=== PATIENT | male | born 1970 | race Caucasian/White ===

== ENCOUNTER 2023-09-17 10:18 | Outpatient (OUT) | payer OTHER, SELFPAY ==
[2023-09-17 10:27] LABS: Basophils Absolute Auto 0.1 10^3/uL (0.0-0.1); Eosinophils Absolute Auto 0.6 10^3/uL (0.0-0.7); Eosinophils Percent Auto 6.5 % (0.9-7.0); Hematocrit 41.3 % (42.0-54.0); Hemoglobin 14.1 g/dL (14.0-18.0); Immature Granulocytes Abs Auto 0.03 10^3/uL (0.00-0.03); Immature Granulocytes Pct Auto 0.3 % (0.0-0.5); Lymphocytes Absolute Auto 3.8 10^3/uL (1.2-3.8); Lymphocytes Percent Auto 40.7 % (20.5-60.0); Mean Corpuscular HGB Conc 34.1 g/dL (29.9-35.2); Mean Corpuscular Volume 90.8 fL (80.0-94.0); Monocytes Absolute Auto 0.9 10^3/uL (0.3-0.8); Monocytes Percent Auto 9.8 % (1.7-12.0); Neutrophils Absolute Auto 3.9 10^3/uL (1.4-6.5); Neutrophils Percent Auto 41.7 % (43.0-75.0); Platelet Count 246 10^3/uL (150-450); Red Blood Count 4.55 10^6/uL (4.70-6.10); Red Cell Distribution Width 12.6 % (11.0-15.0); White Blood Count 9.2 10^3/uL (4.0-11.0)
[2023-09-17 10:40] LABS: Creatinine Urine Random 117.72 mg/dL (20.00-300.00); Microalbumin Urine Random <1.3 mg/dL (<=30.0)
[2023-09-17 10:54] LABS: Alanine Aminotransferase 24 U/L (16-63); Albumin Globulin Ratio 1.1; Albumin Level 3.7 g/dL (3.4-5.0); Alkaline Phosphatase 93 U/L (46-116); Anion Gap 9.1; Aspartate Amino Transferase 11 U/L (15-37); BUN Creatinine Ratio 10.7; Bilirubin Total 0.7 mg/dL (0.2-1.0); Calcium 9.1 mg/dL (8.5-10.1); Carbon Dioxide 29.9 mmol/L (21.0-32.0); Chloride 103 mmol/L (98-107); Chol HDL Ratio 3.4; Cholesterol 186 mg/dL (<=200); Estimated GFR (African America >60 (>=60); Estimated GFR (Non-African Ame >60 (>=60); Globulin 3.4 g/dL; Glucose 79 mg/dL (74-106); HDL Cholesterol 55 mg/dL (40-60); LDL Cholesterol Calculated 122.4 mg/dL; Sodium 138 mmol/L (136-145); Total Protein 7.1 g/dL (6.4-8.2); Triglycerides 43 mg/dL (<=150); VLDL CHOLESTEROL 8.6 mg/dL
[2023-09-17 11:18] LABS: Prostate Specific Antigen Scrn 1.01 ng/mL (<=4.00)
== END 2023-09-17 10:19 | disposition home or self-care (01) ==
LOC: LAB 10:18
PROVIDERS: PCP Nurse Practitioner Family; Visit Provider Nurse Practitioner Family
DX: Z12.5 Encounter for screening for malignant neoplasm of prostate (principal); E10.9 Type 1 diabetes mellitus without complications
CPT/HCPCS: 36415; 80053; 80061; 82043; 82570; 85025; G0103

== ENCOUNTER 2024-04-12 08:58 | Outpatient (OUT) | payer OTHER, SELFPAY ==
--- OUTSIDE RECORDS SUMMARY | 2024-04-12 09:15 | XMS_ITS | CCD ---
Author Organization [facility] Care Team Providers Care Tower Foreman Name Role Phone YUE ZELAYA Admitting Unavailable YUE ZELAYA Attending Unavailable HOUSE, DR CHRISTINA Admitting Unavailable HOUSE, DR CHRISTINA Attending Unavailable HOUSE, DR CHRISTINA Primary Care Unavailable HOUSE, DR CHRISTINA Consulting Unavailable HOUSE, DR CHRISTINA Admitting Unavailable HOUSE, DR CHRISTINA Attending Unavailable HOUSE, DR CHRISTINA Primary Care Unavailable RENETTA THURSTON Consulting Unavailable Akosua Cope Unavailable Medications Current Medications Medication Drug Class(es) Dates Sig (Normalized) Sig (Original) amoxicillin 875 mg / clavulanate 125 mg oral tablet (1 source) Penicillin-class Antibacterial Start: 10-26-2023 take 1 tablet by mouth every twelve hours Amoxicillin-Pot Clavulanate 875-125 MG 1 tablet Orally every 12 hrs for 10 days Oct, Active 3 ml insulin degludec 100 unt/ml pen injector (5 sources) Insulin Analog Tresiba FlexTouc h 100 UNIT/ML Subcutaneous for 90 Days Active 3 ml insulin lispro 100 unt/ml pen injector (5 sources) Insulin Analog HumaLOG KwikPen 100 UNIT/ML Subcutaneous for 90 Days Active {20 (nirmatrelvir 150 MG Oral Tablet) / 10 (ritonavir 100 MG Oral Tablet) } Pack [Paxlovid 5-Day] (1 source) Start: 08-17-2023 Paxlovid (300/100) 20 x 150 MG & 10 x 100MG as directed Orally bid for 5 days Jul, Active Problems Active Problems Problem Classification Problem Date Documented Da te Episodic/Chronic Diabetes mellitus with complications (4 sources) Type 1 diabetes mellitus with hyperglycemia; Translations: [TYPE 1 DM W/HYPERGLYCEMIA] Onset: 08-07-2022 Chronic Diabetes mellitus without complication (5 sources) Type 1 diabetes mellitus without complication; Translations: [Type 1 diabetes mellitus without complications] Chronic Disorders of teeth and jaw (1 source) Periapical abscess without sinus Episodic Nutritional deficiencies (1 source) Vitamin D deficiency, unspecified; Translations: [VITAMIN D DEFICIENCY UNSPECIFIED] Onset: 08-11-2022 Chronic Other aftercare (1 source) intermediate (current) use of insulin; Translations: [SNF CURRENT USE OF INSULIN] Onset: 08-11-2022 Episodic Other nervous system disorders (4 sources) Chronic pain; Translations: [Other chronic pain] Chronic Other nervous system disorders (1 source) Other chronic pain Chronic Other non-traumatic joint disorders (1 source) Pain in left shoulder Episodic Other screening for suspected conditions (not mental disorders or infectious disease) (2 sources) Encounter for screening for malignant neoplasm of colon; Translations: [Encounter for screening for malignant neoplasm of prostate] Episodic Residual codes; unclassified (1 source) Body mass index (BMI) 20.0-20.9, adult Episodic Unclassified (2 sources) CONTACT W/AND (SUSP) EXPOS COVID-19; Translations: [CONTACT W/AND (SUSP) EXPOS COVID-19] Onset: 09-03-2021 Past or Other Problems Problem Classification Problem Date Documented Da te Episodic/Chronic Unclassified (1 source) CONTACT W/AND (SUSP) EXPOS COVID-19; Translations: [CONTACT W/AND (SUSP) EXPOS COVID-19] Onset: 08-28-2021 Viral infection (2 sources) COVID-19; Translations: [COVID-19] Onset: 09-03-2021 Results Test Name Value Interpretation Reference Range Facil ity C-PEPTIDE, SERUMon 2 C-Peptide, Serum <0.1 Critically low 1.1-4.4 [facility] Comment on above: Result Comment: C-Pe ptide reference interval is for fasting patients. Performed By: #### C PEPT #### [facility] [address] [place] [address] Dr. Joselito Leong LIPID PROFILEon 08-07-2022 CHOL-HDL RATIO NORM SEE BELOW Normal [facility] Comment on above: Result Comment: 3.3 - 4.4 LOW RISK 4.4 - 7.1 AVERAGE RISK 7.1 - 11.0 MODERATE RISK >11.0 HIGH RISK Performed By: #### R ENAL, LIPID #### [facility] [address] [address] [address] Joselito Leong Cholesterol [Mass/Vol] 202 mg/dL Critically high <=200 [facility] Comment on above: Performed By: #### R ENAL, LIPID #### [facility] [address] [address] [address] Joselito Leong Cholesterol in HDL [Mass/Vol] 55 mg/dL Normal 40-60 [facility] Comment on above: Performed By: #### R ENAL, LIPID #### [facility] [address] [address] [address] Joselito Leong Cholesterol in LDL [Mass/Vol] 134.8 mg/dL Normal [facility] Comment on above: Performed By: #### R ENAL, LIPID #### [facility] [address] [address] [address] Joselito Leong Cholesterol.total /Cholesterol in HDL [Mass ratio] 3.7 {ratio} Normal [facility] Comment on above: Performed By: #### R ENAL, LIPID #### [facility] [address] [address] [address] Joselito Leong HDL NORMAL > or = 60 mg/dl - LO W CARDIOVASCULAR RISK <40 mg/dl - HIGH CARDIOVASCULAR RISK Normal [facility] Comment on above: Performed By: #### R ENAL, LIPID #### [facility] [address] [address] [address] Joselito Leong LDL CALC NORMAL SEE BELOW Normal [facility] Comment on above: Result Comment: <100 mg/dl OPTIMAL 100 - 129 mg/dl NEAR OR ABOVE OPTIMAL 130 - 159 mg/dl BORDERLINE HIGH 160 - 189 mg/dl HIGH >190 mg/dl VERY HIGH Performed By: #### R ENAL, LIPID #### [facility] [address] [address] [address] Joselito Leong Triglyceride [Mass/Vol] 61 mg/dL Normal <=150 [facility] Comment on above: Performed By: #### R ENAL, LIPID #### [facility] [address] [address] [address] Joselito Leong VLDL CALC 12.2 mg/dL Normal [facility] Comment on above: Performed By: #### R ENAL, LIPID #### [facility] [address] [address] [address] Joselito Leong MICROALB CREAT RATIO RANDOMo n 08-07-2022 mALB <1.3 Normal <=30.0 [facility] Comment on above: Performed By: #### M CRR #### [facility] [address] [address] [address] Joselito Leong MALB CR RATIO 11.7 mg/g Normal 0.0-29.9 [facility] Comment on above: Performed By: #### M CRR #### [facility] [address] [place] [address] Dr. Joselito Leong MALB CR RATIO RANGE SEE BELOW Normal [facility] Comment on above: Result Comment: NO M ICROALBUMINURIA 0-29 MG/G CLINICAL MICROALBUMINURIA 30-300 MG/G MACROALBUMINURIA >300 MG/G Performed By: #### M CRR #### [facility] [address] [place] [address] Dr. Joselito Leong URINE CREAT 111.45 mg/dL Normal 20.00-300.00 [facility] Comment on above: Performed By: #### M CRR #### [facility] [address] [place] [address] Dr. Joselito Leong RENAL FUNCTION PANELon 08-07 Albumin [Mass/Vol] 4.2 g/dL Normal 3.4-5.0 [facility] Comment on above: Performed By: #### R ENAL, LIPID #### [facility] [address] [address] [address] Joselito Leong Calcium [Mass/Vol] 8.9 mg/dL Normal 8.5-10.1 [facility] Comment on above: Performed By: #### R ENAL, LIPID #### [facility] [address] [address] [address] Joselito Leong Chloride [Moles/Vol] 97 mmol/L Critically low 98-107 [facility] Comment on above: Performed By: #### R ENAL, LIPID #### [facility] [address] [address] [address] Joselito Leong CO2 [Moles/Vol] 29.5 mmol/L Normal 21.0-32.0 [facility] Comment on above: Performed By: #### R ENAL, LIPID #### [facility] [address] [address] [address] Joselito Leong Creatinine [Mass/Vol] 0.76 mg/dL Normal 0.70-1.30 [facility] Comment on above: Performed By: #### R ENAL, LIPID #### [facility] [address] [address] [address] Joselito Leong EGFR-AF PANAMANIAN >60 Normal >=60 [facility] Comment on above: Performed By: #### R ENAL, LIPID #### [facility] [address] [address] [address] Joselito Leong EGFR-NON AF PANAMANIAN >60 Normal >=60 [facility] Comment on above: Performed By: #### R ENAL, LIPID #### [facility] [address] [address] [address] Joselito Leong Glucose [Mass/Vol] 172 mg/dL Critically high 74-106 [facility] Comment on above: Performed By: #### R ENAL, LIPID #### [facility] [address] [address] [address] Joselito Leong Phosphate [Mass/Vol] 3.6 mg/dL Normal 2.6-4.7 [facility] Comment on above: Performed By: #### R ENAL, LIPID #### [facility] [address] [address] [address] Joselito Leong Potassium [Moles/Vol] 4.6 mmol/L Normal 3.5-5.1 [facility] Comment on above: Performed By: #### R ENAL, LIPID #### [facility] [address] [address] [address] Joselito Leong Sodium [Moles/Vol] 130 mmol/L Critically low 136-145 [facility] Comment on above: Performed By: #### R ENAL, LIPID #### [facility] [address] [address] [address] Joselito Leong Urea nitrogen [Mass/Vol] 9.0 mg/dL Normal 7.0-18.0 [facility] Comment on above: Performed By: #### R ENAL, LIPID #### [facility] [address] [address] [address] Joselito Leong VITAMIN D 25 OHon 08-07-2022 VIT D 25-OH 39.0 ng/mL Normal [facility] Comment on above: Performed By: #### V ITAD #### [facility] [address] [address] [address] Joselito Leong VIT D RANGES SEE BELOW Normal [facility] Comment on above: Result Comment: <20 ng/mL Vit D deficient 20 - <30 ng/mL Vit D insufficient 30 - 100 ng/mL Vit D sufficient >100 ng/mL Potential Toxicity Performed By: #### V ITAD #### [facility] [address] [address] [address] Joselito Leong Covid-19 PCR (CVDTB)on 08-19 SARS-CoV-2 (COVID-19) RNA ANN+probe Ql (Unsp spec) Detected Critically abnormal NOT DETECTED [facility] Comment on above: Result Comment: This test is not yet approved or cleared by the [place] FDA. When there are no FDA-approved or cleared tests available, and other criteria are met, FDA can make tests available under an emergency access mechanism called an Emergency Use Authorization (EUA). The EUA for this test is supported by the Dermatology Teacher of Health and Human Service's (HHS's) declaration that circumstances exist to justify the emergency use of in vitro diagnostics for the detection and/or diagnosis of the virus that causes COVID-19. This EUA will remain in effect (meaning this test can be used) for the duration of the COVID-19 declaration justifying emergency of IVDs, unless it is terminated or revoked by FDA (after which the test may no longer be used). Performed By: #### C VDTBH #### [facility] [address] [address] [address] Joselito Leong A1C with Est Shawanda Johnson 10-17 Glucose mass conc 171 mg/dL Normal [facility] Comment on above: Result Comment: Jory keller Average Glucose is a calculated value from HgbA1C and is merchandiser retail representative of the average blood glucose level in the last 2-3 month period. Performed By: #### C BCDIF, GBCHEM, GBTSH, MG, UA, RPR, A1CN #### [facility] [address] [place], [place] [id number] Hemoglobin A1c/Hemoglobin.to mj mass fraction (Bld) 7.6 % High 4.7-6.4 [facility] Comment on above: Result Comment: Inte rpretation: Standardized A1c Good control or normal: 4-6% (60-120 mg/dL avg) Moderate control: 6.1-8.0% (120-180 mg/dL avg) Poor control: >8.0% (180 mg/dL avg) With 4% as a baseline, each 1% increase = 30 mg/dL increase in average glucose. Taken from DCCT (Diabetes Control Complications Trial) Performed By: #### C BCDIF, GBCHEM, GBTSH, MG, UA, RPR, A1CN #### [facility] [address] [place], [place] [id number] CBCDIFon 10-17-2018 Abs Baso 0.03 k/uL Normal 0-0.2 [facility] Comment on above: Performed By: #### C BCDIF, GBCHEM, GBTSH, MG, UA, RPR, A1CN #### [facility] [address] [place], [place] [id number] Abs [place] 0.62 k/uL Normal 0-0.8 [facility] Comment on above: Performed By: #### C BCDIF, GBCHEM, GBTSH, MG, UA, RPR, A1CN #### [facility] [address] [place], [place] [id number] Abs Neut 3.19 k/uL Normal 1.8-7.7 [facility] Comment on above: Performed By: #### C BCDIF, GBCHEM, GBTSH, MG, UA, RPR, A1CN #### [facility] [address] [place] [address] Basophils/100 WBC (Bld) 0.4 % Normal 0-1 [facility] Comment on above: Performed By: #### C BCDIF, GBCHEM, GBTSH, MG, UA, RPR, A1CN #### [facility] [address] [place] [address] Eosinophils #/vol (Bld) 0.24 10*3/uL Normal 0-0.4 [facility] Comment on above: Performed By: #### C BCDIF, GBCHEM, GBTSH, MG, UA, RPR, A1CN #### [facility] [address] [place] [address] Eosinophils/100 WBC (Bld) 3.2 % Normal 0-4 [facility] Comment on above: Performed By: #### C BCDIF, GBCHEM, GBTSH, MG, UA, RPR, A1CN #### [facility] [address] [place] [address] Erythrocyte distribution width Ratio (RBC) 13.0 % Normal 11.5-14.5 [facility] Comment on above: Performed By: #### C BCDIF, GBCHEM, GBTSH, MG, UA, RPR, A1CN #### [facility] [address] [place] [address] Hematocrit Volume Fraction (Bld) 42.4 % Normal 41.0-53.0 [facility] Comment on above: Performed By: #### C BCDIF, GBCHEM, GBTSH, MG, UA, RPR, A1CN #### [facility] [address] [place] [address] Hemoglobin mass conc (Bld) 14.4 g/dL Normal 13.5-17.5 [facility] Comment on above: Performed By: #### C BCDIF, GBCHEM, GBTSH, MG, UA, RPR, A1CN #### [facility] [address] [place] [address] Immature Gran 0.30 % Normal 0-1.9 [facility] Comment on above: Performed By: #### C BCDIF, GBCHEM, GBTSH, MG, UA, RPR, A1CN #### [facility] [address] [place] [address] Lymphocytes #/vol (Bld) 3.37 10*3/uL Normal 1.0-4.0 [facility] Comment on above: Performed By: #### C BCDIF, GBCHEM, GBTSH, MG, UA, RPR, A1CN #### [facility] [address] [place] [address] Lymphocytes/100 WBC (Bld) 45.1 % High 22-44 [facility] Comment on above: Performed By: #### C BCDIF, GBCHEM, GBTSH, MG, UA, RPR, A1CN #### [facility] [address] [place] [address] MCH Entitic mass (RBC) 31.0 pG Normal 26-34 [facility] Comment on above: Performed By: #### C BCDIF, GBCHEM, GBTSH, MG, UA, RPR, A1CN #### [facility] [address] [place] [address] MCHC mass conc (RBC) 34.0 g/dL Normal 31-37 [facility] Comment on above: Performed By: #### C BCDIF, GBCHEM, GBTSH, MG, UA, RPR, A1CN #### [facility] [address] [place] [address] MCV Entitic volume (RBC) 91.2 fL Normal 80-100 [facility] Comment on above: Performed By: #### C BCDIF, GBCHEM, GBTSH, MG, UA, RPR, A1CN #### [facility] [address] [place] [address] Monocytes/100 WBC (Bld) 8.3 % Normal 4-12 [facility] Comment on above: Performed By: #### C BCDIF, GBCHEM, GBTSH, MG, UA, RPR, A1CN #### [facility] [address] [place] [address] Neutrophils/100 WBC (Bld) 42.7 % Normal 40-70 [facility] Comment on above: Performed By: #### C BCDIF, GBCHEM, GBTSH, MG, UA, RPR, A1CN #### [facility] [address] [place] [address] NRBCs 0 /100 WBC Normal 0-0.9 [facility] Comment on above: Performed By: #### C BCDIF, GBCHEM, GBTSH, MG, UA, RPR, A1CN #### [facility] [address] [place] [address] Platelets #/vol (Bld) 265 10*3/uL Normal 150-450 [facility] Comment on above: Performed By: #### C BCDIF, GBCHEM, GBTSH, MG, UA, RPR, A1CN #### [facility] [address] [place] [address] RBC #/vol (Bld) 4.65 10*6/uL Normal 4.50-5.90 [facility] Comment on above: Performed By: #### C BCDIF, GBCHEM, GBTSH, MG, UA, RPR, A1CN #### [facility] [address] [place] [address] WBC #/vol (Bld) 7.47 10*3/uL Normal 4.5-11.0 [facility] Comment on above: Performed By: #### C BCDIF, GBCHEM, GBTSH, MG, UA, RPR, A1CN #### [facility] [address] [place] [address] Valentino Sharp 2018 Albumin mass conc 4.3 g/dL Normal 3.5-5.0 [facility] Comment on above: Performed By: #### C BCDIF, GBCHEM, GBTSH, MG, UA, RPR, A1CN #### [facility] [address] [place] [address] Alkaline Phos 64 U/L Normal 38-125 [facility] Comment on above: Performed By: #### C BCDIF, GBCHEM, GBTSH, MG, UA, RPR, A1CN #### [facility] [address] [place] [address] ALT enzyme act/vol 25 U/L Normal 21-72 [facility] Comment on above: Performed By: #### C BCDIF, GBCHEM, GBTSH, MG, UA, RPR, A1CN #### [facility] [address] [place] [address] Amylase enzyme act/vol 83 U/L Normal 30-110 [facility] Comment on above: Performed By: #### C BCDIF, GBCHEM, GBTSH, MG, UA, RPR, A1CN #### [facility] [address] [place] [address] Anion gap molar conc 13 mmol/L Normal 0-15 [facility] Comment on above: Performed By: #### C BCDIF, GBCHEM, GBTSH, MG, UA, RPR, A1CN #### [facility] [address] [place] [address] AST enzyme act/vol 22 U/L Normal 17-59 [facility] Comment on above: Performed By: #### C BCDIF, GBCHEM, GBTSH, MG, UA, RPR, A1CN #### [facility] [address] [place] [address] Bilirubin Ql (U) 1.1 mg/dL Normal 0.2-1.3 [facility] Comment on above: Performed By: #### C BCDIF, GBCHEM, GBTSH, MG, UA, RPR, A1CN #### [facility] [address] [place] [address] Calcium mass conc 9.6 mg/dL Normal 8.4-10.2 [facility] Comment on above: Performed By: #### C BCDIF, GBCHEM, GBTSH, MG, UA, RPR, A1CN #### [facility] [address] [place] [address] Chloride molar conc 101 mmol/L Normal 98-107 [facility] Comment on above: Performed By: #### C BCDIF, GBCHEM, GBTSH, MG, UA, RPR, A1CN #### [facility] [address] [place] [address] Cholesterol mass conc 182 mg/dL Normal 100-199 [facility] Comment on above: Performed By: #### C BCDIF, GBCHEM, GBTSH, MG, UA, RPR, A1CN #### [facility] [address] [place] [address] CO2 molar conc 26 mmol/L Normal 22-30 [facility] Comment on above: Performed By: #### C BCDIF, GBCHEM, GBTSH, MG, UA, RPR, A1CN #### [facility] [address] [place] [address] Creatinine mass conc 0.76 mg/dL Normal 0.66-1.25 [facility] Comment on above: Performed By: #### C BCDIF, GBCHEM, GBTSH, MG, UA, RPR, A1CN #### [facility] [address] [place] [address] eGFR Amer >60 Normal >60 [facility] Comment on above: Result Comment: MDRD calculation used for eGFR results. Performed By: #### C BCDIF, GBCHEM, GBTSH, MG, UA, RPR, A1CN #### [facility] [address] [place] [address] eGFR non Am >60 Normal >60 [facility] Comment on above: Performed By: #### C BCDIF, GBCHEM, GBTSH, MG, UA, RPR, A1CN #### [facility] [address] [place] [address] Gamma glutamyl transferase enzyme act/vol 35 U/L Normal 15-73 [facility] Comment on above: Performed By: #### C BCDIF, GBCHEM, GBTSH, MG, UA, RPR, A1CN #### [facility] [address] [place] [address] Glucose mass conc 183 mg/dL High 74-106 [facility] Comment on above: Performed By: #### C BCDIF, GBCHEM, GBTSH, MG, UA, RPR, A1CN #### [facility] [address] [place] [address] LDH 339 U/L Normal 318-618 [facility] Comment on above: Performed By: #### C BCDIF, GBCHEM, GBTSH, MG, UA, RPR, A1CN #### [facility] [address] [place] [address] Phosphate mass conc 4.4 mg/dL Normal 2.5-4.5 [facility] Comment on above: Performed By: #### C BCDIF, GBCHEM, GBTSH, MG, UA, RPR, A1CN #### [facility] [address] [place] [address] Potassium molar conc 4.6 mmol/L Normal 3.5-5.1 [facility] Comment on above: Performed By: #### C BCDIF, GBCHEM, GBTSH, MG, UA, RPR, A1CN #### [facility] [address] [place] [address] Protein mass conc 7.2 g/dL Normal 6.2-8.2 [facility] Comment on above: Performed By: #### C BCDIF, GBCHEM, GBTSH, MG, UA, RPR, A1CN #### [facility] [address] [place] [address] Sodium molar conc 135 mmol/L Low 137-145 [facility] Comment on above: Performed By: #### C BCDIF, GBCHEM, GBTSH, MG, UA, RPR, A1CN #### [facility] [address] [place] [address] Triglyceride mass conc 92 mg/dL Normal 35-150 [facility] Comment on above: Performed By: #### C BCDIF, GBCHEM, GBTSH, MG, UA, RPR, A1CN #### [facility] [address] [place] [address] Urate mass conc 3.0 mg/dL Low 3.5-8.5 [facility] Comment on above: Performed By: #### C BCDIF, GBCHEM, GBTSH, MG, UA, RPR, A1CN #### [facility] [address] [place] [address] Urea nitrogen mass conc 10 mg/dL Normal 9-20 [facility] Comment on above: Performed By: #### C BCDIF, GBCHEM, GBTSH, MG, UA, RPR, A1CN #### [facility] [address] [place] [address] [facility] Thyrotropin Qn 3.120 uU/mL Normal 0.465-4.680 [facility] Comment on above: Performed By: #### C BCDIF, GBCHEM, GBTSH, MG, UA, RPR, A1CN #### [facility] [address] [place], [place] [address] Magnesiumon 10-17-2018 Magnesium mass conc 2.4 mg/dL High 1.3-2.3 [facility] Comment on above: Performed By: #### C BCDIF, GBCHEM, GBTSH, MG, UA, RPR, A1CN #### [facility] [address] [place], [place] [id number] RPRon 10-17-2018 Reagin Ab RPR Ql (S) Nonreactive Normal Nonreactive [facility] Comment on above: Performed By: #### C BCDIF, GBCHEM, GBTSH, MG, UA, RPR, A1CN #### [facility] [address] [place], [place] [id number] Urinalysison 10-17-2018 Bilirubin mass conc Negative Normal Negative [facility] Comment on above: Performed By: #### C BCDIF, GBCHEM, GBTSH, MG, UA, RPR, A1CN #### [facility] [address] [place], [place] [id number] Clarity Nom (U) Clear Normal Clear [facility] Comment on above: Performed By: #### C BCDIF, GBCHEM, GBTSH, MG, UA, RPR, A1CN #### [facility] [address] [place], [place] [id number] Color Nom (U) Straw Critically abnormal [facility] Comment on above: Performed By: #### C BCDIF, GBCHEM, GBTSH, MG, UA, RPR, A1CN #### [facility] [address] [place], [place] [id number] Comments MICROSCOPIC ANALYSIS NOT DONE ON URINES WITH NEGATIVE BIOCHEMICAL TESTS Normal [facility] Comment on above: Performed By: #### C BCDIF, GBCHEM, GBTSH, MG, UA, RPR, A1CN #### [facility] [address] [place], [place] [id number] Glucose mass conc Negative Normal Negative [facility] Comment on above: Performed By: #### C BCDIF, GBCHEM, GBTSH, MG, UA, RPR, A1CN #### [facility] [address] [place] [address] Hemoglobin/Blood Negative Normal Negative [facility] Comment on above: Performed By: #### C BCDIF, GBCHEM, GBTSH, MG, UA, RPR, A1CN #### [facility] [address] [place] [address] Ketone Trace Critically abnormal Negative [facility] Comment on above: Performed By: #### C BCDIF, GBCHEM, GBTSH, MG, UA, RPR, A1CN #### [facility] [address] [place] [address] Leukest Negative Normal Negative [facility] Comment on above: Performed By: #### C BCDIF, GBCHEM, GBTSH, MG, UA, RPR, A1CN #### [facility] [address] [place] [address] Nitrite Ql (U) Negative Normal Negative [facility] Comment on above: Performed By: #### C BCDIF, GBCHEM, GBTSH, MG, UA, RPR, A1CN #### [facility] [address] [place] [address] pH (U) 7.0 [pH] Normal 5-7 [facility] Comment on above: Performed By: #### C BCDIF, GBCHEM, GBTSH, MG, UA, RPR, A1CN #### [facility] [address] [place] [address] Protein mass conc (U) Negative Normal Negative [facility] Comment on above: Performed By: #### C BCDIF, GBCHEM, GBTSH, MG, UA, RPR, A1CN #### [facility] [address] [place] [address] Urine Spec [place] 1.005 Normal 1.005-1.030 [facility] Comment on above: Performed By: #### C BCDIF, GBCHEM, GBTSH, MG, UA, RPR, A1CN #### [facility] [address] [place], [place] [id number] Urobilinogen Qn (U) <2.0 Normal 0.0-1.0 [facility] Comment on above: Performed By: #### C BCDIF, GBCHEM, GBTSH, MG, UA, RPR, A1CN #### [facility] [address] [place] [address] Vital Signs Date Time Vital Sign Value Performing Clinician Facility 08-29-2023 11:30-0500 Body height 185.42 cm Akosua Cope Other [facility] 08-29-2023 11:30-0500 Body mass index (BMI) [Ratio] 20.32 kg/m2 Akosua Cope Other [facility] Other 08-29-2023 11:30-0500 Body weight 69.85 kg Akosua Cope Other [facility] Other 08-29-2023 11:30-0500 Diastolic blood pressure 78 mm[Hg] Akosua Cope Other [facility] Other 08-29-2023 11:30-0500 SaO2% (BldA) [Mass fraction] 99 % Akosua Cope Other [facility] Other 08-29-2023 11:30-0500 Systolic blood pressure 136 mm[Hg] Akosua Cope Other [facility] Other Encounters Encounter Date Encounter Type Care Provider Facility Start: 10-26-2023 End: 10-26-2023 ambulatory Akosua Cope Other [facility] Other Start: 10-26-2023 Telephone encounter Akosua Traore [facility] Start: 10-17-2023 End: 10-17-2023 ambulatory Akosua Cope Other [facility] Start: 10-17-2023 Telephone encounter Akosua Traore her [facility] Start: 09-20-2023 End: 09-20-2023 ambulatory Akosua Zavaletajustonohemi Other [facility] Other Start: 09-20-2023 Telephone encounter Akosua Traore her [facility] Start: 08-29-2023 End: 08-29-2023 ambulatory Akosua Cope Other [facility] Other Start: 08-29-2023 Encounter for genera l adult medical examination without abnormal findings Akosua Nikkijimmy [facility] Start: 08-29-2023 Periodic preventive med est patient 40-64yrs Akosua Zavaletasvetlanajimmy [facility] Start: 08-17-2023 End: 08-17-2023 ambulatory Akosua Zavaletasvetlanajimmy Other [facility] Other Start: 08-17-2023 Office outpatient ne w 20 minutes Akosua Nikkijimmy [facility] Start: 08-07-2022 End: 08-08-[address] CARRI LEMA Facility:[facility] Start: 08-28-2021 End: 08-28-[address] CARRI LEMA Facility:[facility] Start: 10-17-2018 End: 10-20-2018 Patient encounter procedure YUE Carballo [facility] Payers Date Payer Category Payer Unknown [id number] 1970 Unknown [id number] 1960 Private Health Insurance [id number] Private Health Insurance [id number] Private Health Insurance [id number] Social History Date Type Detail Facility Sex Assigned At [facility] Other Evaluation note 10-26-2023 Note Date & Type Note Facility 10-26-2023 Evaluation note Encounter Date Diagnosis Assessment Notes Oct, Dental abscess (ICD-10 - K04.7) [facility] Other Evaluation note 08-29-2023 Note Date & Type Note Facility 08-29-2023 Evaluation note Encounter Date Diagnosis Assessment Notes Aug, Type 1 diabetes mellitus without complication (ICD-10 - E10.9) Follows with Dr. Thurston every 6 months. Last labs were completed in 07/2022.Ordered labs today. Aug, Wellness examination (ICD-10 - Z00.00) Personalized health advice was given to the beneficiary including a written plan for screenings discussed and provided. Advanced care planning reviewed and/or information given as requested. Additional counseling was provided here today in regards to general topics regarding health education were discussed in detail. All preventative issues were discussed including remaining a nonsmoker, colorectal screening, the importance of proper sleep for brain health maintenance, maintaining a heart-healthy balanced diet, recognizing and addressing signs of anxiety and depression, maintaining positive relationships with family and friends. Aug, Screening for colon cancer (ICD-10 - Z12.11) Discussed with patient the colon cancer screening options including cologuard and colonoscopy. Risks and benefits of each discussed. Patient opts for cologuard screening. Aug, Screening for prostate cancer (ICD-10 - Z12.5) Risks and benefits of PSA screening discussed with patient today. Patient wishes to get PSA screening done. PSA screening lab ordered today. Aug, Other chronic pain (ICD-10 - G89.29) Discussed interventions with pt including rest, ice, conservative measures, stretches tylenol/NSAIDs, and when further evaluation would be warranted. All questions answered and patient sent home stable. ALso discussed referral to ortho for steroid injections. He would like to wait and will call if symptoms worsen. But will do all the recommend at home treatments when having pain Aug, Pain in left shoulder (ICD-10 - M25.512) Aug, BMI 20.0-20.9, adult (ICD-10 - Z68.20) [facility] Other Evaluation note 08-17-2023 Note Date & Type Note Facility 08-17-2023 Evaluation note Encounter Date Diagnosis Assessment Notes Jul, COVID-19 (ICD-10 - U07.1) Rapid COVID antigen test performed at home today and that test was POSITIVE. Instructed patient to isolate per CDC guidelines for 5 days from symptom onset, then 5 days in a mask. May return to work/activities outside home after isolation period as long as symptoms have improved and has been afebrile for 24 hours without use of antipyretic. Use Tylenol/Motrin as needed for body aches/fever. Increase fluids and rest. Encouraged use of cool mist humidifier and other supportive remedies. Covid 19 PCR test is positive. Given her age and duration of symptoms, he is a good candidate for paxlovid. Educated about the risks vs benefit of medicine. He understands and would like to start it. Most recent GFR is greater than 60. No history of liver disease. Pt given his return precautions. Immediate eval by ER for SOB, difficulty breathing, chest pain, fevers that do not break with antipyretic, severe headache, neck pain/stiffness, abdominal pain, persistent N/V, severe dehydration, or any other concerning symptoms as reviewed on patient education handout. Patient verbalizes understanding and is agreeable to treatment plan. Jul, Other The patient was seen per scheduled virtual care visit in their home and my location (provider) is in the family practice office setting. The staff involved in visit was myself, Akosua Cope DNP, BUSINESS PROFESSOR, FISH SEINER (provider) Time spent with patient was approximately 6 minutes. [facility] Other Evaluation note Note Date & Type Note Facility Evaluation note No Information [facility] Other History general Narrative - Reported Note Date & Type Note Facility History general Narrative - Reported Type Medical History Type 1 diabetes mellitus Medical History Vitamin D deficiency Medical History intermediate current use of insulin Medical History BPH (benign prostatic hyperplasi a) [employer] 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 Medical History BPH (benign prostatic hyperplasi a) Surgical History Gallbladder Hospitalization History See above [facility] Other Summary Purpose Family History No Family History Records FoundNo Family History Records Found Advance Directives No Advanced Directives Records FoundNo Advanced Directives Records Found Additional Source Comments (unrecognized sect ion and content) No Status Records FoundNo Status Records Found INFORMATION SOURCE (unrecogn ized section and content) DATE CREATED AUTHOR 11/07/2018 [facility] DATE CREATED AUTHOR AUTHOR'S ORGANIZ ATION 08/11/2022 [facility] REASON FOR VISIT (unrecogniz ed section and content) COVID + [phone] h-- [facility] resultslab resultsTooth FOR RECORDS PERTAINING TO PATIENTS WHO ARE OR HAVE BEEN ENROLLED IN A CHEMICAL DEPENDENCY/SUBSTANCEABUSE PROGRAM, SOME INFORMATION MAY BE OMITTED. This clinical summary was aggregated from multiple sources. Caution should be exercised in using it in the provision of clinical care. This summary normalizes information from multiple sources, and as a consequence, information in this document may materially change the coding, format and clinical context of patient data. In addition, data may be omitted in some cases. CLINICAL DECISIONS SHOULD BE BASED ON THE PRIMARY CLINICAL RECORDS. [email or web address] provides no warranty or guarantee of the accuracy or completeness of information in this document.
[2024-04-12 10:33] LABS: Anion Gap 12.7; BUN Creatinine Ratio 8.2; Calcium 9.4 mg/dL (8.5-10.1); Carbon Dioxide 28.8 mmol/L (21.0-32.0); Chloride 101 mmol/L (98-107); Estimated GFR (African America >60 (>=60); Estimated GFR (Non-African Ame >60 (>=60); Glucose 122 mg/dL (74-106); Potassium 4.5 mmol/L (3.5-5.1); Sodium 138 mmol/L (136-145)
[2024-04-13 04:07] LABS: FSH 9.7 mIU/mL (1.5-12.4); Luteinizing Hormone(LH) 7.6 mIU/mL (1.7-8.6); Testosterone 745 ng/dL (264-916)
== END 2024-04-12 08:59 | disposition home or self-care (01) ==
LOC: LAB 08:58
PROVIDERS: PCP Nurse Practitioner Family; Visit Provider Internal Medicine
DX: E10.65 Type 1 diabetes mellitus with hyperglycemia (principal); Z79.4 Long term (current) use of insulin; E55.9 Vitamin D deficiency, unspecified; Z71.3 Dietary counseling and surveillance
CPT/HCPCS: 36415; 80048; 82728; 83001; 83002; 84146; 84270; 84403